=== PATIENT | female | born 1970 | race Caucasian/White ===

== ENCOUNTER 2024-09-22 10:48 | Emergency (ER) | payer BC ==
[2024-09-22] MEDS ORDERED: PROPOFOL 40 ML ONE (13:23)
[2024-09-22] MEDS ORDERED: Lidocaine 1% PF 5 ML VIAL ONE (13:23)
[2024-09-22] MEDS ORDERED: PROPOFOL 20 ML ONE (13:59)
[2024-09-22] MEDS ORDERED: Lidocaine Viscous Sol 2% 15 ml UD Cup ONE (14:21)
[2024-09-22] MEDS ORDERED: Acetaminophen 325 MG (10.15 ML) UDCUP ONE (14:22)
== END 2024-09-22 15:59 | disposition admitted as inpatient to this hospital (09) ==
LOC: ERS 10:48
DX: R13.10 Dysphagia, unspecified (principal); Z87.891 Personal history of nicotine dependence
CPT/HCPCS: 70360; 88305; 99282; J2704